=== PATIENT | female | born 1990 | race Caucasian/White ===

== ENCOUNTER 2019-01-04 23:43 | Inpatient (IN) | payer SELFPAY ==
[2019-01-05] MEDS ORDERED: Ondansetron 4 MG/2 ML SDV IVPUSH PRN (00:17)
[2019-01-05] MEDS ORDERED: Nalbuphine 10 MG/1 ML Vial IVPUSH PRN (00:17)
[2019-01-05] MEDS ORDERED: Sodium Chloride 0.9% 10 ML Syringe FLUSH PRN (00:17)
[2019-01-05] MEDS ORDERED: Calcium Carbonate 500 MG Tab.Chew PO PRN (00:17)
[2019-01-05] MEDS ORDERED: Oxytocin/Lactated Ringers 10 UNIT/1,000 ML BAG IV SCH (00:30)
[2019-01-05] MEDS ORDERED: Lactated Ringers 1,000 ML IV SCH (00:30)
--- NOTE | 2019-01-05 02:35 | PCM.LDHP ---
L&D History of Present Illness - General Date of Service: 01/05/19 Admit Problem/Dx: Patient Status Order with Admit Dx/Problem 01/05/19 00:17 Patient Status [ADT] Routine Admission Diagnosis/Problem Admission Diagnosis/Problem Source of Information: Patient History Limitations: Reports: No Limitations - History of Present Illness Introduction:: 28 year old at 37w2d by LMP c/w 20 week ultrasound. PNC with me until 20 weeks. Then has been planning to deliver at home. Presented with butt sawyer after laboring at home in the tub and becoming concerned with tachycardia. SROM clear fluid 0600 01/04/19 No complications other than sparse care - Related Data Allergies/Adverse Reactions: Allergies Allergy/AdvReac Type Severity Reaction Status Date / Time No Known Allergies Allergy Verified 01/05/19 00:17 Past Medical History - Past Health History Medical/Surgical History: Denies Medical/Surgical History Social & Family History - Tobacco Use Smoking Status *Q: Never Smoker H&P Review of Systems - Review of Systems: Review Of Systems: See Below General: Reports: No Symptoms HEENT: Reports: No Symptoms Pulmonary: Reports: No Symptoms Cardiovascular: Reports: No Symptoms Gastrointestinal: Reports: No Symptoms Genitourinary: Reports: No Symptoms Musculoskeletal: Reports: No Symptoms Skin: Reports: No Symptoms Psychiatric: Reports: No Symptoms Neurological: Reports: No Symptoms Hematologic/Lymphatic: Reports: No Symptoms Immunologic: Reports: No Symptoms L&D Exam - Exam Exam: See Below - Vital Signs Weight: 86.319 kg - OB Specific Contraction Intensity: Moderate to Strong Movement: Active Heart Tones: Present Heart Tones per Min: 140 Heart Rate (FHR) Variability: Moderate (6-25 bmp) Presentation: Vertex - Sousa Score Sousa Score Cervix Position: Midposition Sousa Score Consistency: Medium Sousa Score Effacement: 51-70% Sousa Score Dilation: 3-4 cm Sousa Score 's Station: -2 Sousa Score Total: 7 - Exam General: Alert, Oriented HEENT: PERRLA, Conjunctiva Clear, EACs Clear, EOMI, Hearing Intact, Mucosa Moist & [place], Nares Patent, Normal Nasal Septum, Posterior Pharynx Clear, TMs Clear Neck: Supple, Trachea Midline Lungs: Clear to Auscultation, Normal Respiratory Effort Cardiovascular: Regular Rate, Regular Rhythm GI/Abdominal Exam: Normal Bowel Sounds, Soft, Non-Tender, No Organomegaly, No Distention, No Abnormal Bruit, No Mass, Pelvis Stable Back Exam: Normal Inspection, Full Range of Motion Extremities: Normal Inspection, Normal Range of Motion, Non-Tender, No Pedal Edema, Normal Capillary Refill Skin: Warm, Dry, Intact Neurological: Cranial Nerves Intact, Reflexes Equal Bilateral Psychiatric: Alert, Normal Affect, Normal Mood - Patient Data Lab Results Last 24 hrs: Laboratory Results - last 24 hr 01/05/19 Range/Units 00:35 WBC 16.37 H (3.98-10.04) K/mm3 RBC 4.12 (3.98-5.22) M/mm3 Hgb 12.8 (11.2-15.7) gm/dl Hct 35.8 (34.1-44.9) % MCV 86.9 (79.4-94.8) fl MCH 31.1 (25.6-32.2) pg MCHC 35.8 H (32.2-35.5) g/dl RDW Std Deviation 40.2 (36.4-46.3) fL Plt Count 186 (182-369) K/mm3 MPV 9.9 (9.4-12.3) fl Result Diagrams: 01/05/19 00:35 Problem List Initiated/Reviewed/Updated: Yes Orders Last 24hrs: Active Orders 24 hr Category Date Time Status Patient Status [ADT] Routine ADT 01/05/19 00:17 Active Activity as Tolerated [RC] PFP Care 01/05/19 00:17 Active Communication Order [RC] ASDIRECTED Care 01/05/19 00:17 Active Heart Tones [RC] ASDIRECTED Care 01/05/19 00:18 Active Non Stress Test [RC] PER UNIT ROUTINE Care 01/05/19 00:17 Active Notify Provider [RC] PFP Care 01/05/19 00:17 Active Notify Provider [RC] PRN Care 01/05/19 00:17 Active Peripheral IV Care [RC] . DIRECTED Care 01/05/19 00:18 Active Vital Signs [RC] PER UNIT ROUTINE Care 01/05/19 00:17 Active Regular Diet [DIET] Diet 01/05/19 Breakfast Active GROUP B STREP BY PCR [MOLEC] Stat Lab 01/05/19 00:21 Ordered RAPID PLASMA REAGIN,RPR [CHEM] Routine Lab 01/05/19 00:35 Received Calcium Carbonate [Tums] Med 01/05/19 00:17 Active 1,000 mg PO Q2H PRN Lactated Ringers [Ringers, Lactated] 1,000 ml Med 01/05/19 00:30 Active IV ASDIRECTED Nalbuphine [Nubain] Med 01/05/19 00:17 Active 10 mg IVPUSH Q2H PRN Ondansetron [Zofran] Med 01/05/19 00:17 Active 4 mg IVPUSH Q4H PRN Oxytocin/Lactated Ringers [Pitocin in LR 10 Units/1,000 Med 01/05/19 00:30 Active ML] 10 unit in 1,000 ml IV .CONTINUOUS Sodium Chloride 0.9% [Saline Flush] Med 01/05/19 00:17 Active 10 ml FLUSH ASDIRECTED PRN Electronic Heart Tones Ext w TOCO [WOMSER] Oth 01/05/19 00:17 Ordered Routine Electronic Heart Tones Internal [WOMSER] Per Unit Oth 01/05/19 00:17 Ordered Routine Peripheral IV Insertion Adult [OM.PC] Routine Oth 01/05/19 00:17 Ordered Resuscitation Status Routine Resus Stat 01/05/19 00:17 Ordered Medication Orders Calcium Carbonate/Glycine (Tums) 1,000 mg PO Q2H PRN PRN Reason: Indigestion Lactated Ringer's (Ringers, Lactated) 1,000 mls @ 100 mls/hr IV ASDIRECTED KELBY Oxytocin/Lactated Ringer's (Pitocin In Lr 10 Units/1,000 Ml) 10 unit in 1,000 mls @ 100 mls/hr IV .CONTINUOUS KELBY Nalbuphine HCl (Nubain) 10 mg IVPUSH Q2H PRN PRN Reason: Pain Ondansetron HCl (Zofran) 4 mg IVPUSH Q4H PRN PRN Reason: Nausea/Vomiting Sodium Chloride (Saline Flush) 10 ml FLUSH ASDIRECTED PRN PRN Reason: Keep Vein Open Assessment/Plan Comment:: Term . GBS unknown. No need to treat based on risk factors. Collection requested but patient was in tub and declined. Desires saline lock and no pitocin post delivery unless heavy bleeding.
--- NOTE | 2019-01-05 02:40 | PCM.SN ---
- Free Text/Narrative Note: Stage I - Patient presented in active labor. 4 cm. SROM at home 0600 day prior to delivery. Progressed to complete with overall reassuring FHT. Stage II - of viable male. Weight pending. 8/9 APGARS at 0211. Head delivered OA over intact perineum. Body and shoulders atraumatically. To maternal abdomen after transfer to supine from hands and knees. Positive cry. Stage III - of intact placenta. 3vc. No laceration. EBL 125
[2019-01-05] MEDS ORDERED: Witch Hazel Medicated Pads 40/Jar TOP PRN (04:23)
[2019-01-05] MEDS ORDERED: Acetaminophen 325 MG Tab PO PRN (08:47)
[2019-01-05] MEDS ORDERED: Ibuprofen 600 MG Tab PO PRN (08:47)
--- NOTE | 2019-01-06 08:02 | PCM.DCSUM1 ---
Discharge Summary - Hospital Course Diagnosis: Stroke: No - Discharge Data Discharge Date: 01/06/19 Discharge Disposition: Home, Self-Care 01 Condition: Good - Referral to Home Health Primary Care Physician: Jess Ayers MD - Patient Instructions Diet: Usual Diet as Tolerated Driving: May Drive Today Showering/Bathing: May Shower Wound/Incision Care: Keep Operative Site/Wound Site Clean and Dry Notify Provider of: Fever, Increased Pain, Swelling and Redness, Drainage, Nausea and/or Vomiting - Discharge Plan *PRESCRIPTION DRUG MONITORING PROGRAM REVIEWED*: No *COPY OF PRESCRIPTION DRUG MONITORING REPORT IN PATIENT CELSO: No Home Medications: Home Meds Pnv No.95/Ferrous Fum/Folic AC [ Caplet] 1 each PO DAILY 01/05/19 [ History] Referrals: Jess Ayers MD [Primary Care Provider] - (2 weeks) - Discharge Summary/Plan Comment DC Time >30 min.: No - General Info Date of Service: 01/06/19 Functional Status: Reports: Pain Controlled - Review of Systems General: Reports: No Symptoms HEENT: Reports: No Symptoms Pulmonary: Reports: No Symptoms Cardiovascular: Reports: No Symptoms Gastrointestinal: Reports: No Symptoms Genitourinary: Reports: No Symptoms Musculoskeletal: Reports: No Symptoms Skin: Reports: No Symptoms Neurological: Reports: No Symptoms Psychiatric: Reports: No Symptoms - Patient Data Vitals - Most Recent: Last Vital Signs Temp 36.4 C 01/05/19 15:11 Pulse 66 01/06/19 04:35 Resp 14 01/06/19 04:35 BP 95/73 01/06/19 04:35 Pulse Ox 99 01/06/19 04:35 Weight - Most Recent: 86.319 kg Lab Results - Last 24 hrs: Laboratory Results - last 24 hr 01/05/19 Range/Units 00:35 RPR Non-reactive (NONREACTIVE) Med Orders - Current: Current Medications Acetaminophen (Tylenol) 650 mg PO Q4H PRN PRN Reason: mild pain or fever Calcium Carbonate/Glycine (Tums) 1,000 mg PO Q2H PRN PRN Reason: Indigestion Ibuprofen (Motrin) 600 mg PO Q4H PRN PRN Reason: Mild pain or fever Sodium Chloride (Saline Flush) 10 ml FLUSH ASDIRECTED PRN PRN Reason: Keep Vein Open Witch Shanika (Tucks) 1 pad TOP ASDIRECTED PRN PRN Reason: Pain Last Admin: 01/05/19 04:26 Dose: 1 canister Discontinued Medications Lactated Ringer's (Ringers, Lactated) 1,000 mls @ 100 mls/hr IV ASDIRECTED KELBY Oxytocin/Lactated Ringer's (Pitocin In Lr 10 Units/1,000 Ml) 10 unit in 1,000 mls @ 100 mls/hr IV .CONTINUOUS KELBY Nalbuphine HCl (Nubain) 10 mg IVPUSH Q2H PRN PRN Reason: Pain Ondansetron HCl (Zofran) 4 mg IVPUSH Q4H PRN PRN Reason: Nausea/Vomiting - Exam General: Reports: Alert, Oriented HEENT: Reports: Pupils Equal, Pupils Reactive, EOMI, Mucous Membr. Moist/[place] Neck: Reports: Supple Lungs: Reports: Clear to Auscultation, Normal Respiratory Effort Cardiovascular: Reports: Regular Rate, Regular Rhythm GI/Abdominal Exam: Normal Bowel Sounds, Soft, Non-Tender, No Organomegaly, No Distention, No Abnormal Bruit, No Mass, Pelvis Stable Rectal (Female) Exam: Normal Exam, Normal Rectal Tone Back Exam: Reports: Normal Inspection, Full Range of Motion Extremities: Normal Inspection, Normal Range of Motion, Non-Tender, No Pedal Edema, Normal Capillary Refill Skin: Reports: Warm, Dry, Intact Wound/Incisions: Reports: Healing Well Neurological: Reports: No New Focal Deficit Psy/Mental Status: Reports: Alert, Normal Affect, Normal Mood
== END 2019-01-06 11:00 | disposition home or self-care (01) | DRG 807 ==
LOC: JD.OBCHECK 23:43 → JD.OB 23:51 → JD.OBCHECK 01-05 00:17 → JD.OB 01-05 01:02 → OBSVTOIN 01-05 02:11 → JD.OB 01-05 02:12
PROVIDERS: ADMIT Obstetrics & Gynecology; ATTEND Obstetrics & Gynecology
PROC: 10E0XZZ Delivery of Products of Conception, External Approach (ICD-10-PCS; principal; 2019-01-05)
DX: O80 Encounter for full-term uncomplicated delivery (principal); Z3A.37 37 weeks gestation of pregnancy; Z37.0 Single live birth
CPT/HCPCS: 36415; 59025; 59409; 85027; 86592